=== PATIENT | male | born 1960 | race Caucasian/White ===

== ENCOUNTER 2017-12-25 15:02 | Emergency (ER) | payer OTHER, MEDICARE ==
[~2017-12-25 15:02] MED LIST: ALPH E MIXED PO; CYCLOBENZAPRINE10 M1 PO; FLEXERIL10 MG PO; FLONASE120 SPRAY/ NASB; FLUTICASONE PRO16 GM NASB; GABAPENTIN300 MG PO; GEMFIBROZIL600 M1 PO; GLUCOPHAGE1000 M1 PO; HYDROXYZINE PAM25 MG PO; LEVOTHYROXINE50 MCG PO; LISINOPRIL10 M1 PO; LYRICA50 M1 PO; MASON NATURAL2000 IU PO; MECLIZINE HCL25 MG PO; MOBIC15 MG PO; NADOLOL20 MG PO; NEURONTIN300 M1 PO; NEXIUM40 M1 PO; OMEGA-3 ACID ETH1 GM PO; ONE DAILY MULT1 EAC2 PO; PRAVASTATIN SOD20 MG PO; PRAVASTATIN SOD40 MG PO; PROAIR HFA0.09 MG/Ac IH; SERTRALINE HCL50 MG PO; SERTRALINE HYD100 MG PO; TRAZODONE HCL50 M1 PO; TYLENOL #31 TAB PO; VENTOLIN HFA18 GM INH; VITAMIN B-121000 MC3 PO; VITAMIN B-150 MG PO
[2017-12-25 15:59] LABS: ABSOLUTE BASOPHIL COUNT 0.1 /CUMM (0.0-0.2); ABSOLUTE EOSINOPHIL COUNT 0.1 /CUMM (0.0-0.7); ABSOLUTE GRANULOCYTE CT 6.4 /CUMM (1.4-6.5); ABSOLUTE LYMPH COUNT 1.8 /CUMM (1.2-3.4); ABSOLUTE MONOCYTE COUNT 0.7 /CUMM (0.10-0.60); BASOPHIL % 0.6 % (0.0-2.0); EOSINOPHIL % 1.4 % (0-5); GRANULOCYTE % 69.9 % (42.2-75.2); MEAN CORPUSCULAR HGB 24.3 PG (27.0-31.0); MEAN CORPUSCULAR HGB CONC 31.7 G/DL (33.0-37.0); MEAN CORPUSCULAR VOLUME 76.8 FL (80.0-94.0); MEAN PLATELET VOLUME 8.2 FL (7.4-10.4); PLATELET COUNT 442 /CUMM (130-400); RBC DISTRIBUTION WIDTH 19.6 % (11.5-14.5); RED BLOOD CELL CT 4.55 /CUMM (4.70-6.10); WHITE BLOOD CELL COUNT 9.2 /CUMM (4.8-10.8)
--- NOTE | 2017-12-25 17:15 | RADIOLOGY REPORT ---
EXAMINATION: XR CHEST CLINICAL INFORMATION: Shortness of breath. Presumptive diagnosis of pneumonia. COMPARISON: Several prior chest x-rays, most recent of which is dated 02/28/2016. TECHNIQUE: 2 views of the chest were obtained. FINDINGS: The cardiomediastinal silhouette is within normal limits in size. Low lung volumes are seen with slight thickening of the central airways and linear reticular opacities in the lung bases, right greater than left, suspicious for reactive airways disease or bronchitis. No focal consolidation, effusion or pneumothorax is seen. Bony structures are unremarkable. IMPRESSION: 1. Findings are suspicious for reactive airways disease or bronchitis. Close clinical correlation requested. 2. No focal pneumonia.
[2017-12-25 19:02] VITALS: BP 157/93
--- NOTE | 2017-12-25 19:29 | ED GENERAL ADULT ---
History of Present Illness General Chief Complaint: Dyspnea (COPD, CHF, Other) Stated Complaint: DIFF BREATHING Source: patient Exam Limitations: no limitations Vital Signs & Intake/Output Vital Signs & Intake/Output Vital Signs Date Time Temp Pulse Resp B/P B/P Pulse O2 O2 Flow FiO2 Mean Ox Delivery Rate 12/25 1925 98 Room Air 12/25 190 97.6 100 18 157/93 94 Room Air 12/25 1524 97.8 109 17 137/94 97 Room Air ED Intake and Output 12/26 0000 12/25 1200 Intake Total 0 Output Total Balance 0 Intake, IV 0 Allergies Coded Allergies: NO KNOWN ALLERGIES (07/23/15) Reconcile Medications Albuterol Sulfate (Ventolin Hfa) 18 GM HFA.AER.AD 2 PUF INH PRN ASTHMA ( Reported) Cyanocobalamin (Vitamin B-12) (Unknown Strength) TABLET (Unknown Dose) PO DAILY SUPPLEMENT (Reported) Cyclobenzaprine HCl 10 MG TABLET 1 TAB PO QPM MUSCLE SPASMS (Reported) Esomeprazole (Nexium) 40 MG CAPSULE.DR 1 CAP PO BID GI (Reported) Fluticasone Propionate 16 GM SPRAY.SUSP 2 SPRAY NASB PRN NASAL CONGESTION ( Reported) Gabapentin (Neurontin) 300 MG CAPSULE 1 CAP PO PRN NERVE PAIN (Reported) Gemfibrozil 600 MG TABLET 1 TAB PO BID CHOLESTEROL (Reported) Levothyroxine Sodium 50 MCG TABLET 1 TAB PO DAILY THYROID (Reported) Lisinopril 10 MG TABLET 1 TAB PO DAILY BP (Reported) Metformin HCl (Glucophage) 1,000 MG TABLET 1 TAB PO BID DIABETES (Reported) Multivitamin (One Daily Multivitamin) 1 EACH TABLET 1 TAB PO DAILY SUPPLEMENT (Reported) Whitt-3 Acid Ethyl Esters 1 GM CAPSULE 1 CAP PO BID CHOLESTEROL (Reported) Pregabalin (Lyrica) 50 MG CAPSULE 1 CAP PO TID NERVE PAIN (Reported) Sertraline HCl 50 MG TABLET 50 MG PO DAILY MENTAL HEALTH (Reported) Trazodone HCl 50 MG TABLET 1 TAB PO QPM SLEEP (Reported) Triage Note: PT REFERRED TO ED FROM URGENT CARE FOR EVAL OF POTENTIAL PE. C/O INTERMITTENT SOB AT REST AND EXCERTION X 1 MONTH. DENIES CALF TENDERNESS OR SWELLING. DENIES CP. Triage Nurses Notes Reviewed? yes HPI: This is a 57-year-old male with history of hypertension, hyperlipidemia, diabetes, morbid obesity status post gastric bypass surgery presented to the emergency department with several weeks of exertional dyspnea. Patient was also intermittent cough. He denies any chest pain. He states that he becomes dyspneic after walking down the hallway at home. He also gets short of breath when taking stairs. He denies any fever, chills, abdominal pain, vomiting. He has had no diaphoresis. He denies any new or worsening leg swelling. He states that he has had negative stress tests and echocardiograms in the past. (Gorge Fortune MD) Past History Travel History Traveled to [place] past 21 day No Medical History Any Pertinent Medical History? see below for history Neurological: NONE EENT: NONE Cardiovascular: hypertension, hyperlipidemia, IRREGULAR HEART BEAT Respiratory: asthma Gastrointestinal: PANCREATIC CYST Hepatic: NONE Renal: NONE Musculoskeletal: NONE Psychiatric: NONE Endocrine: diabetes Blood Disorders: NONE Cancer(s): NONE MANAGER SYSTEMS/Reproductive: NONE Surgical History Surgical History: GASTRIC BYPASS Psychosocial History What is your primary language Sammarinese Tobacco Use: Never used Family History Hx Contributory? No (Gorge Fortune MD) Review of Systems Review of Systems Constitutional: Reports: no symptoms. EENTM: Reports: no symptoms. Respiratory: Reports: cough, short of breath. Denies: hemoptysis, sputum production, wheezing. Cardiovascular: Reports: no symptoms. GI: Reports: no symptoms. Genitourinary: Reports: no symptoms. Musculoskeletal: Reports: no symptoms. Skin: Reports: no symptoms. Neurological/Psychological: Reports: no symptoms. Hematologic/Endocrine: Reports: no symptoms. Immunologic/Allergic: Reports: no symptoms. (Gorge Fortune MD) Physical Exam Physical Exam General Appearance: well developed/nourished, no apparent distress, alert, comfortable Head: atraumatic, normal appearance Eyes: Bilateral: normal appearance, PERRL, EOMI. Ears, Nose, Throat: normal pharynx, normal ENT inspection Neck: normal inspection, supple, full range of motion Respiratory: normal breath sounds, chest non-tender, no respiratory distress, lungs clear Cardiovascular: murmur Gastrointestinal: soft, non-tender Rectal: deferred Back: normal inspection, normal range of motion Extremities: normal inspection, normal capillary refill, normal range of motion Skin: intact, normal color, warm/dry Core Measures ACS in differential dx? Yes CVA/TIA Diagnosis: No Sepsis Present: No Sepsis Focused Exam Completed? No (Gorge Fortune MD) Progress Differential Diagnoses I considered the following diagnoses in my evaluation of the patient: CHF, pneumonia, metabolic derangement, aortic stenosis, other valve disease. Lower suspicion for reactive airway disease given lack of suggestive physical exam findings. Low suspicion also for pulmonary embolism. Plan of Care: Orders Procedure Date/time Status TROPONIN LEVEL 12/25 1524 Complete D-DIMER 12/25 1524 Complete COMPREHENSIVE METABOLIC PANEL 12/25 152 Complete CBC WITHOUT DIFFERENTIAL 12/25 1524 Complete B-TYPE NATRIURETIC PEP (BNP) 12/25 152 Complete EKG 12/25 152 Active Laboratory Tests 12/25/17 1546: Anion Gap 11, Estimated GFR > 60, BUN/Creatinine Ratio 18.6, Glucose 368 H, Calcium 9.3, Total Bilirubin 0.4, AST 25, ALT 41, Alkaline Phosphatase 83, Troponin I < 0.01, Fub-M-Jgovecgwvwl Pept 31.3, Total Protein 6.9, Albumin 4.1, Globulin 2.8, Albumin/Globulin Ratio 1.5, D-Dimer High Sensitivty < 200, CBC w Diff NO MAN DIFF REQ, RBC 4.55 L, MCV 76.8 L, MCH 24.3 L, MCHC 31.7 L, RDW 19.6 H, MPV 8.2, Gran % 69.9, Lymphocytes % 20.1 L, Monocytes % 8.0, Eosinophils % 1.4, Basophils % 0.6, Absolute Granulocytes 6.4, Absolute Lymphocytes 1.8, Absolute Monocytes 0.7 H, Absolute Eosinophils 0.1, Absolute Basophils 0.1 Chest x-ray is clear and nonacute, d-dimer is negative, labs are largely unremarkable. H&H is stable from prior. Patient continues to have exertional dyspnea but no dyspnea at rest and no chest pain on reassessment. Given that he has no documented history of a murmur, some concern for worsening valvular disease/aortic stenosis in this patient. Patient made aware of these findings. He states that he will call his big data developer in the morning to establish follow- up. Negative troponin 1 is adequate given chronicity of symptoms. No ischemic changes on EKG. Patient discharged home with return precautions and follow-up instructions. CXR Impression: no acute abnormality Initial ED EKG: normal axis, NSR, no ST T wave changes (Gorge Fortune MD) Departure Departure Time of Disposition: 2022 Disposition: HOME OR SELF CARE Condition: Stable Clinical Impression Primary Impression: Shortness of breath Referrals: Collins LYONS,Bryant Calloway (PCP/Family) Additional Instructions: Thank you for coming to [facility] today. During your workup, we did not identify the cause of your shortness of breath. As we discussed, it is very important that you follow-up with your primary care doctor as well as your big data developer, especially since you have a heart murmur which appears to be new. For this, your big data developer may order a echocardiogram, and possibly consider a stress test. Please return to the emergency department immediately if you develop any worsening symptoms or other concerning symptoms such as chest pain, nausea, sweats, vomiting, abdominal pain. Departure Forms: Customer Survey General Discharge Information (Gorge Fortune MD) Resident Co-Sign Statement Statement: ED Attending supervision documentation- [] I saw and evaluated the patient. I have also reviewed all the pertinent lab results and diagnostic results. I agree with the findings and the plan of care as documented in the Resident's documentation. [x] I have reviewed the ED Record and agree with the Resident's documentation. [] Additions or exceptions (if any) to the Resident's note and plan are summarized below: [] (Magen Haque DO) Critical Care Note Critical Care Note Critical Care Time: non-applicable (Gorge Fortune MD)
== END 2017-12-25 20:40 ==
LOC: ERH 15:02
PROVIDERS: Physician Assistant
DX: R06.02 Shortness of breath (principal); I10 Essential (primary) hypertension; E78.5 Hyperlipidemia, unspecified; I49.9 Cardiac arrhythmia, unspecified; K86.2 Cyst of pancreas; E11.9 Type 2 diabetes mellitus without complications; Z79.84 Long term (current) use of oral hypoglycemic drugs
CPT/HCPCS: 71046; 93005; 93010